=== PATIENT | male | born 1975 | race Two or more races ===

== ENCOUNTER 2017-09-03 17:45 | Emergency (ER) | payer OTHER | END 2017-09-03 19:28 | disposition home or self-care (01) | LOC: FTE 17:45 | DX: S01.01XA Laceration without foreign body of scalp, initial encounter (principal); F17.210 Nicotine dependence, cigarettes, uncomplicated; W26.8XXA Contact with other sharp object(s), not elsewhere classified, initial encounter; Y92.9 Unspecified place or not applicable | CPT/HCPCS: 12001; 99283-25 ==